=== PATIENT | male | born 1995 | race Caucasian/White ===

== ENCOUNTER 2020-05-26 16:04 | Emergency (ER) | payer OTHER ==
[2020-05-26] MEDS ORDERED: DIPH/PERTUSS(ACELL)/TETANUS VAC/PF 0.5 ML SYR (>=10YO) IM ONE (16:37)
[2020-05-26] MEDS ORDERED: HYDROCODONE/ACETAMINOPHEN 5-325 MG TABLET PO ONE ×2 (16:37→18:09)
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
[2020-05-26] MEDS ORDERED: LIDOCAINE 1% INJ-PF (10 MG/ML) 30 ML SDV INJ ONE (18:10)
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
[2020-05-26 18:57] VITALS: BP 140/87
== END 2020-05-26 20:22 | disposition home or self-care (01) ==
LOC: ER 16:04
DX: S51.811A Laceration without foreign body of right forearm, initial encounter (principal); S62.306A Unspecified fracture of fifth metacarpal bone, right hand, initial encounter for closed fracture; S62.304A Unspecified fracture of fourth metacarpal bone, right hand, initial encounter for closed fracture; V68.6XXA Passenger in heavy transport vehicle injured in noncollision transport accident in traffic accident, initial encounter; Y99.0 Civilian activity done for income or pay; F17.210 Nicotine dependence, cigarettes, uncomplicated; Z23 Encounter for immunization
CPT/HCPCS: 99283; 96372; 73130; 90715; 12002; 29105; J3490

== ENCOUNTER 2020-06-05 07:57 | Day surgery (SDC) | payer OTHER ==
[~2020-06-05 07:57] MED LIST: CEFAZOLIN 2 GM/D5W RTU 2 GM/50 ML RTUPB IV PRN
[2020-06-05] MEDS ORDERED: CEFAZOLIN 2 GM/D5W RTU 2 GM/50 ML RTUPB IV ONE (08:00)
[2020-06-05] MEDS ORDERED: LIDOCAINE 2% INJ-PF (20 MG/ML) 10 ML AMPUL ONE (08:49)
[2020-06-05] MEDS ORDERED: DEXAMETHASONE SOD PHOSPHATE INJ 4 MG/1 ML VIAL ONE (08:50)
[2020-06-05] MEDS ORDERED: MIDAZOLAM 2 MG/2 ML INJ ONE (08:50)
[2020-06-05] MEDS ORDERED: DEXMEDETOMIDINE INJ 80 MCG/20 ML VIAL IV ONE (08:50)
[2020-06-05] MEDS ORDERED: ONDANSETRON HCL INJ/PF 4 MG/2 ML SDV ONE (08:50)
[2020-06-05] MEDS ORDERED: FENTANYL CITRATE INJ/PF 100 MCG/2 ML AMPUL ONE (08:50)
[2020-06-05] MEDS ORDERED: PROPOFOL INJ 200 MG/20 ML VIAL IV ONE (08:50)
[2020-06-05] MEDS ORDERED: ROPIVACAINE HCL 0.5% INJ/PF (5 MG/1 ML) 30 ML SDV ONE (09:21)
[2020-06-05] MEDS ORDERED: GLYCOPYRROLATE 1 MG/5 ML VIAL ONE (10:00)
[2020-06-05] MEDS ORDERED: NEOSTIGMINE METHYLSULFATE 10 MG/10 ML VIAL ONE (10:00)
[2020-06-05] MEDS ORDERED: METOCLOPRAMIDE HCL INJ/PF 10 MG/2 ML SDV ONE (10:00)
[2020-06-05] MEDS ORDERED: MEPERIDINE HCL/PF INJ 25 MG/1 ML DISP.SYRIN IV PRN (10:31)
[2020-06-05] MEDS ORDERED: PROMETHAZINE HCL INJ 25 MG/1 ML VIAL IV PRN (10:31)
[2020-06-05] MEDS ORDERED: ONDANSETRON HCL INJ/PF 4 MG/2 ML SDV IV PRN ×2 (10:31→11:16)
[2020-06-05] MEDS ORDERED: FENTANYL CITRATE INJ/PF 100 MCG/2 ML AMPUL IV PRN ×3 (10:31)
[2020-06-05] MEDS ORDERED: DIPHENHYDRAMINE HCL 50 MG/ML VIAL IV PRN (10:31)
--- NOTE | 2020-06-05 11:15 | Operative Report ---
Operative Report DATE OF SURGERY: 06/05/20 PREOPERATIVE DIAGNOSIS: Right fourth and fifth metacarpal shaft fracture POSTOPERATIVE DIAGNOSIS: Right fourth and fifth metacarpal shaft fracture OPERATION: Right fourth and fifth closed reduction, intramedullary headless compression screw SURGEON: SARAH STALLINGS JR ANESTHESIA: GA COMPLICATIONS: None ESTIMATED BLOOD LOSS: 0 PROCEDURE: The patient was brought to the operating suite laid supine on operating table. There is given a regional block preoperatively. 2 g Ancef were given preoperatively. The right upper extremities then prepped and draped in sterile sterile fashion. An appropriate timeout was performed The right upper extremity was exsanguinated with Esmarch and the tourniquet was inflated 250 mmHg. Under fluoroscopy the fracture pattern was evaluated. A K wire was introduced and evaluated under fluoroscopy to ensure appropriate position along the dorsal aspect of the metacarpal head of the fifth metacarpal. This was centered on the AP view. This was advanced across the fracture site which allowed appropriate reduction. We then introduced a K wire into the fourth metacarpal in the same fashion which was again advanced across the fracture site. Manipulation was done without needing to open the fracture in order to gain reduction. Screw length and width were assessed under fluoroscopy. A 3.0 oh headless compression screw was selected at 40 mm of length. An incision was made about the K wire of the fourth metacarpal followed by gentle dissection with Littler scissors through the skin and then through the fascia to the metacarpal head. Upon visualizing the joint surface a countersink was introduced. The screw was then advanced over the K wire until the proximal threads crossed the fracture and entirety. Using the same technique we placed a 38 mm 3.0 headless compression screw in the fifth metacarpal. These were again assessed under fluoroscopy and found to be in appropriate position with near anatomic reduction of the fractures. Stability of the hand was assessed and the cascade was found to be anatomic. The wound was then irrigated with sterile saline solution followed by inverted interrupted 2-0 Monocryl to close the small stab incisions. Steri-Strips were then placed over these wounds. The tourniquet was then deflated and the wound was dressed in a sterile dressing followed by a well-padded ulnar gutter splint. Patient was then awakened from anesthesia and transferred the PACU in stable condition.
[2020-06-05] MEDS ORDERED: OXYCODONE-ACETAMINOPHEN 5-325 MG TABLET PO PRN (11:16)
[2020-06-05] MEDS ORDERED: RINGERS SOLUTION,LACTATED 1,000 ML IV PRN (11:16)
[2020-06-05] MEDS ORDERED: MORPHINE SULFATE 10 MG/ML INJ IV PRN (11:16)
--- NOTE | 2020-06-05 12:12 | RADIOLOGY REPORT (SQ) ---
EXAM DESCRIPTION: NO CHG FLUORO; HAND RIGHT 3 VIEWS IMAGES COMPLETED DATE/TIME: 06/05/2020 11:30 am REASON FOR STUDY: HARDWARE PLACEMENT RIGHT 4TH AND 5TH METACARPAL ASSISTED WITH FLUORO IN OR COMPARISON: 05/26/2020 FLUOROSCOPY TIME: 1 minutes 36 seconds 3 Images saved to PACS LIMITATIONS: None. PROCEDURE: ORIF right hand FINDINGS: Images from fluoro document placement of 2 long screws in the 4th and 5th metacarpals. IMPRESSION: ORIF right hand. Refer to operative note further information. COMMENT: PQRS 6045F: Fluoroscopy time of the procedure is documented in the report. TECHNICAL DOCUMENTATION: JOB ID: [id number] 2010 [employer]- All Rights Reserved Reading location - IP/workstation name: [email or web address]
--- NOTE | 2020-06-05 12:12 | RADIOLOGY REPORT (SQ) ---
EXAM DESCRIPTION: NO CHG FLUORO; HAND RIGHT 3 VIEWS IMAGES COMPLETED DATE/TIME: 06/05/2020 11:30 am REASON FOR STUDY: HARDWARE PLACEMENT RIGHT 4TH AND 5TH METACARPAL ASSISTED WITH FLUORO IN OR COMPARISON: 05/26/2020 FLUOROSCOPY TIME: 1 minutes 36 seconds 3 Images saved to PACS LIMITATIONS: None. PROCEDURE: ORIF right hand FINDINGS: Images from fluoro document placement of 2 long screws in the 4th and 5th metacarpals. IMPRESSION: ORIF right hand. Refer to operative note further information. COMMENT: PQRS 6045F: Fluoroscopy time of the procedure is documented in the report. TECHNICAL DOCUMENTATION: JOB ID: [id number] 2010 [employer]- All Rights Reserved Reading location - IP/workstation name: [email or web address]
[2020-06-05 13:13] VITALS: BP 114/61
== END 2020-06-05 12:40 | disposition home or self-care (01) ==
LOC: OROUT 07:57
PROVIDERS: ATTEND Orthopaedic Surgery
DX: S62.314A Displaced fracture of base of fourth metacarpal bone, right hand, initial encounter for closed fracture (principal); S62.316A Displaced fracture of base of fifth metacarpal bone, right hand, initial encounter for closed fracture; V48.6XXA Car passenger injured in noncollision transport accident in traffic accident, initial encounter; Y92.410 Unspecified street and highway as the place of occurrence of the external cause; Y99.0 Civilian activity done for income or pay; F17.210 Nicotine dependence, cigarettes, uncomplicated
CPT/HCPCS: 73130; 26615 ×2; J2795; J2250; J1100; J3010; J2765; J2710; J2405; J2704; J3490 ×3; J0690; 01830; 64417; 76942; C1713